=== PATIENT | female | born 1975 | race Hispanic/Latino ===

== ENCOUNTER → 2024-05-22 | Outpatient (CLI) | payer BC, OTHER ==
--- NOTE | 2024-05-27 09:05 | HMCIMG ---
Exam Type: MAMMO DX BILATERAL, US BREAST BILATERAL Clinical Information: UNSPECIFIED LUMP ON BILATERAL BREAST Comparison: October 01, 2020 TECHNIQUE: Mammogram was performed with CC and MLO and ML projections. CAD was performed. CAD shows no worrisome regions. FINDINGS: The breasts are heterogeneously dense, which may obscure small masses.. There is nodularity of the right breast superior aspect. Bilateral breast ultrasound was performed. There are multiple bilateral simple cysts. The largest one on the right is at the 1:00 position measuring 3.7 cm and corresponding to the area of nodularity on mammography. The largest on the left is at 12:00 position retroareolar simple cyst measuring 18 x 15 mm. There are no worrisome lesions by mammography or sonography. There is no nipple retraction or skin thickening. Benign-appearing calcifications are seen. IMPRESSION: 1. No mammographic or sonographic signs of malignancy.. 2. Routine follow-up recommended. BI-RADS: CATEGORY 2: BENIGN FINDINGS Note: A negative x-ray should not delay biopsy if a dominant or clinically suspicious mass is present, since 8-10% of cancers are not identified by mammography. Dense breasts, particularly, may obscure an underlying neoplasm.
== END | disposition home or self-care (01) ==
LOC: RAH 13:05
PROVIDERS: ATTEND Internal Medicine
DX: N60.02 Solitary cyst of left breast (principal); N63.12 Unspecified lump in the right breast, upper inner quadrant; N63.20 Unspecified lump in the left breast, unspecified quadrant; N60.01 Solitary cyst of right breast; R92.1 Mammographic calcification found on diagnostic imaging of breast
CPT/HCPCS: 77066

== ENCOUNTER → 2024-06-17 | Outpatient (CLI) | payer OTHER ==
--- NOTE | 2024-06-17 19:07 | HMCIMG ---
Exam Type: THORACIC SPINE SERIES 3 views History: BACK PAIN Comparison: none Findings: Spondylitic and degenerative changes of the dorsal spine are seen. There are degenerative changes of the apophyseal joints as well. The disc spaces are preserved. No fractures or dislocations are noted. No paraspinal soft tissue abnormalities are seen. Impression: 1. DEGENERATIVE CHANGES OF THE SPINE. NO ACUTE FRACTURES OR DISLOCATIONS NOTED AT THIS TIME.
--- NOTE | 2024-06-17 19:07 | HMCIMG ---
Exam Type: CERV SPINE 4-5 VWS Clinical Information: BACK PAIN Comparison: None FINDINGS: C1 through the top of T1 are seen on the lateral view. The prevertebral soft tissues are normal. No fractures or dislocations are seen. There are spondylytic changes and there are degenerative changes of the facet joints. There is narrowing of the C5-6 and C6-7 discs consistent with degenerative disc disease. The other disc spaces are intact. There is reversal of normal lordosis consistent with spasm. IMPRESSION: Degenerative changes as noted.
--- NOTE | 2024-06-17 19:08 | HMCIMG ---
Exam Type: LUMBAR SPINE 4+VWS Clinical Information: BACK PAIN Comparison: None Findings: Exam of the lumbosacral spine demonstrates no evidence of fracture, subluxation, or significant degenerative change. The alignment of the spine is normal. The disc spaces are intact. The facet joints are preserved without significant degenerative changes Bone mineralization is normal. Impression: Normal exam of the lumbosacral spine.
== END | disposition home or self-care (01) ==
LOC: RAH 16:55
PROVIDERS: ATTEND Chiropractor
DX: M47.813 Spondylosis without myelopathy or radiculopathy, cervicothoracic region (principal); M50.323 Other cervical disc degeneration at C6-C7 level; M48.02 Spinal stenosis, cervical region; M54.08 Panniculitis affecting regions of neck and back, sacral and sacrococcygeal region; M54.6 Pain in thoracic spine
CPT/HCPCS: 72050; 72070; 72110